=== PATIENT | female | born 1995 | race Caucasian/White ===

== ENCOUNTER 2021-01-18 08:01 | Inpatient (IN) ==
[2021-01-18] MEDS ORDERED: Metoclopramide 10 MG/2 ML VIAL IVP PRN (08:19)
[2021-01-18] MEDS ORDERED: *HR* Nalbuphine 10 MG/ML AMPUL IV PRN (08:19)
[2021-01-18] MEDS ORDERED: Azithromycin 500 MG in 0.9 % Sodium Chloride 250 ML IVPB PRN (08:19)
[2021-01-18] MEDS ORDERED: Famotidine 20 MG/2 ML VIAL IVP PRN (08:19)
[2021-01-18] MEDS ORDERED: Naloxone 0.4 MG/ML INJ IVP PRN (08:19)
[2021-01-18] MEDS ORDERED: Ondansetron 4 MG/2 ML VIAL IVP PRN (08:19)
[2021-01-18] MEDS ORDERED: miSOPROStoL 25 MCG TABLET PO PRN (08:19)
[2021-01-18] MEDS ORDERED: Lidocaine 1% 20 ML MDV INFILT PRN (08:19)
[2021-01-18 09:40] LABS: Basophils % 0.2 %; Eosinophils # 0.1 K/mcL (0.0-0.6); Eosinophils % 0.6 %; Hematocrit 39.2 % (35.3-44.9); Hemoglobin 12.9 g/dL (11.5-15.4); Immature Granulocytes % 0.6 % (0-4); Mean Corpuscular HGB Conc 32.9 g/dL (31.6-35.5); Mean Corpuscular Volume 97.3 fL (83.0-100.0); Mean Platelet Volume 11.8 fL (9.4-12.4); Monocytes # 0.6 K/mcL (0.0-1.3); Monocytes % 3.8 %; Platelet Count 136 K/mcL (140-400); Red Blood Count 4.03 M/mcL (3.82-4.97); Red Cell Distribution Width 13.8 % (11.5-14.5); Segmented Neutrophils % 81.8 %; White Blood Count 15.1 K/mcL (4.3-11.1)
[2021-01-18 09:41] LABS: Neutrophils # 12.4 K/mcL (1.6-8.9); Platelet Estimate Normal (Normal)
[2021-01-18 09:49] LABS: Amphetamine Screen,Urine Negative ng/mL (Cutoff=1000); Barbiturate Screen,Urine Negative ng/mL (Cutoff=200); Benzodiazepines Screen,Urine Negative ng/mL (Cutoff=200); Cannabinoid Screen,Urine Negative ng/mL (Cutoff = 50); Cocaine Screen,Urine Negative ng/mL (Cutoff= 300); Opiate Screen,Urine Negative ng/mL (Cutoff=300); Phencyclidine Screen,Urine Negative ng/mL (Cutoff=25)
[2021-01-18 10:15] LABS: Influenza A PCR Negative (Negative); Influenza B PCR Negative (Negative); Resp. Syncytial Virus PCR Negative (Negative)
[2021-01-18 10:16] LABS: SARS-CoV-2 by PCR (In House) Negative (Negative)
[2021-01-18] MEDS: Ringers Solution, Lactated 1,000 ML IVC SCH ×2 (10:21→17:14)
[2021-01-18] MEDS ORDERED: Ropivacaine/PF 0.2% 20 ML VIAL EP ONE (15:17)
[2021-01-18] MEDS ORDERED: EPHEDrine 50 MG/ML VIAL IVP PRN (15:17)
[2021-01-18] MEDS ORDERED: *HR* FentaNYL (PF) 100 MCG/2 ML VIAL EP ONE (15:17)
[2021-01-18] MEDS ORDERED: Epidural Premix (fent/bupiv) 110 ML EP SCH (15:30)
[2021-01-18] MEDS ORDERED: Oxytocin 20 units/ LR 1000 mL 20 UNIT/1,000 ML BAG IVC ONE (17:38)
[2021-01-18] MEDS ORDERED: Oxytocin 20 units/ LR 1000 mL 20 UNIT/1,000 ML BAG IVC SCH ×2 (17:45→22:41)
[2021-01-18] MEDS ORDERED: Ropivacaine/PF 0.2% 20 ML VIAL ONE (18:43)
[2021-01-18] MEDS ORDERED: *HR* FentaNYL (PF) 100 MCG/2 ML VIAL ONE (18:43)
[2021-01-18] MEDS ORDERED: Ondansetron ODT 4 MG TAB.RAPDIS SL PRN (22:41)
[2021-01-18] MEDS ORDERED: Benzocaine/Menthol 56 GM AEROSOL SPRAY TP PRN (22:41)
[2021-01-18] MEDS ORDERED: Measles/Mumps/Rubella Vacc 0.5 ML VIAL SQ PRN (22:41)
[2021-01-18] MEDS ORDERED: Lanolin 7 G OINT...G. TP PRN (22:41)
[2021-01-18] MEDS ORDERED: Rho Immune Globulin 1,500 UNIT SYRINGE IM PRN (22:41)
[2021-01-18] MEDS: Acetaminophen 325 MG TABLET PO SCH (22:56)
[2021-01-18] MEDS: Ibuprofen 600 MG TABLET PO SCH (22:56)
[2021-01-19] MEDS: Ibuprofen 600 MG TABLET PO SCH ×2 (05:46→14:38)
[2021-01-19] MEDS: Acetaminophen 325 MG TABLET PO SCH ×2 (05:46→14:39)
[2021-01-19 06:04] LABS: Basophils % 0.1 %; Eosinophils # 0.1 K/mcL (0.0-0.6); Eosinophils % 0.4 %; Hematocrit 28.7 % (35.3-44.9); Hemoglobin 9.4 g/dL (11.5-15.4); Immature Granulocytes % 0.4 % (0-4); Lymphocytes # 1.3 K/mcL (0.6-4.6); Lymphocytes % 9.7 %; Mean Corpuscular HGB Conc 32.8 g/dL (31.6-35.5); Mean Corpuscular Hemoglobin 31.9 pg (28.0-33.3); Mean Corpuscular Volume 97.3 fL (83.0-100.0); Mean Platelet Volume 10.6 fL (9.4-12.4); Monocytes # 0.5 K/mcL (0.0-1.3); Monocytes % 3.6 %; Neutrophils # 11.8 K/mcL (1.6-8.9); Platelet Count 126 K/mcL (140-400); Red Blood Count 2.95 M/mcL (3.82-4.97); Red Cell Distribution Width 13.6 % (11.5-14.5); Segmented Neutrophils % 85.8 %; White Blood Count 13.7 K/mcL (4.3-11.1)
[2021-01-19 07:43] VITALS: BP 104/52; PULSE 60; TEMP 98.3; O2SAT 98
[2021-01-19] MEDS ORDERED: Prenatal Vit/FA 1 EACH TABLET PO SCH (09:00)
== END 2021-01-19 20:00 | disposition home or self-care (01) | DRG 806 ==
LOC: 1NENULAB 08:01 → 1NENUOBS 22:40
PROVIDERS: ADMIT Student in an Organized Health Care Education/Training Program; ATTEND Student in an Organized Health Care Education/Training Program